=== PATIENT | female | born 1960 | race Asian ===

== ENCOUNTER → 2018-01-12 | Outpatient (CLI) | payer BC ==
[~2018-01-12] MED LIST: GADAVIST IV PRN; MULT-506 PO
--- NOTE | 2018-01-12 18:57 | DIAGNOSTIC IMAGING REPORT ---
ADDENDUM Given additional clinical data, the possibility of posterior tibial tendinopathy must be considered. There does not appear to be a rupture or matrix tear of the tendon. Nevertheless, the surrounding inflammatory change raises the possibility of primary posterior tibial tendinitis, with additional compensatory inflammatory change of the soft tissues of the remainder of the foot and ankle including peroneal tendon. Electronically signed by: Jim Butler M.D. 01/15/2018 8:26 AM Dictated Date/Time: 01/15/2018 8:25 AM ORIGINAL REPORT L LOWER EXT JOINT COMBO CLINICAL HISTORY: L PAIN POSTERIOR TIBIAL TENDON TECHNIQUE: Multiaxial MRI acquisition pre and post gadolinium enhancement COMPARISON STUDY: None FINDINGS: Signal characteristics of the osseous structures are in essentially unremarkable. Minimal degenerative changes of the metatarsophalangeal and interphalangeal joints. Signal characteristics of the plantar fascia are unremarkable. There are findings suggesting a small amount of edema surrounding the peroneal tendon laterally. The tendon itself is intact. There is a trace amount of nonspecific minimal edematous change about all major osseous structures of the foot. This potentially is reactive. Collateral ligaments structures are intact. No evidence for major abscess or collection. IMPRESSION: 1. Findings suggesting mild to moderate perineal tendinitis. 2. No evidence for ligamentous or tendinous disruption. 3. Minimal scattered edematous change most likely on the basis of reactive stress-related change 4. No evidence for abscess collection or abnormal postcontrast enhancement. The above report was generated using voice recognition software. It may contain grammatical, syntax or spelling errors. Electronically signed by: Jim Butler M.D. 01/12/2018 6:56 PM Dictated Date/Time: 01/12/2018 6:50 PM
== END | disposition home or self-care (01) ==
LOC: C.MRI 16:53
PROVIDERS: ATTEND Podiatrist Foot & Ankle Surgery
DX: M76.822 Posterior tibial tendinitis, left leg (principal); M66.862 Spontaneous rupture of other tendons, left lower leg; M66.861 Spontaneous rupture of other tendons, right lower leg; M24.875 Other specific joint derangements left foot, not elsewhere classified; M77.8 Other enthesopathies, not elsewhere classified

== ENCOUNTER → 2018-02-02 | Outpatient (CLI) | payer BC ==
[~2018-02-02] MED LIST changes: -GADAVIST IV PRN
--- NOTE | 2018-02-02 18:27 | DIAGNOSTIC IMAGING REPORT ---
LEFT LOWER EXTREMITY VENOUS DOPPLER CLINICAL HISTORY: Left lower extremity pain and swelling. COMPARISON STUDY: No previous studies for comparison. TECHNIQUE: Sonography of the deep venous system of the left lower extremity was performed. Compression and augmentation were evaluated. FINDINGS: The common femoral, superficial femoral and popliteal veins were compressible. Augmentation was normal. Flow was shown within the deep calf vessels. IMPRESSION: No evidence of deep venous thrombus within the left lower extremity. Electronically signed by: Freddy Orosco M.D. 02/02/2018 6:26 PM Dictated Date/Time: 02/02/2018 6:24 PM
== END | disposition home or self-care (01) ==
LOC: C.ULTR 17:38
PROVIDERS: ATTEND Podiatrist Foot & Ankle Surgery
DX: I82.492 Acute embolism and thrombosis of other specified deep vein of left lower extremity (principal)